=== PATIENT | male | born 1990 | race Caucasian/White ===

== ENCOUNTER 2017-10-04 23:50 | Emergency (ER) | payer OTHER ==
[2017-10-04 23:55] VITALS: BMI 30.5
[2017-10-05] MEDS ORDERED: Metoprolol 1 mg/ml Inj IVP ONE (00:01)
--- NOTE | 2017-10-05 00:01 | ED PDOC ---
Arrival/HPI - General Chief Complaint: Medical Clearance Time Seen by Provider: 10/04/17 23:54 - History of Present Illness Narrative History of Present Illness (Text): 10/05/17 00:01 Past Medical History - Psychiatric Hx Substance Use: No Family/Social History Smoking Status: Light Smoker < 10 Cigarettes Daily Hx Alcohol Use: No Hx Substance Use: No Allergies/Home Meds Allergies/Adverse Reactions: Allergies No Known Allergies Allergy (Verified 10/04/17 23:55) Medical Decision Making ED Course and Treatment: 10/05/17 00:01 Disposition/Present on Arrival - Present on Arrival History of DVT/PE: No History of Uncontrolled Diabetes: No Urinary Catheter: No History of Decub. Ulcer: No History Surgical Site Infection Following: None - Disposition
[2017-10-05] MEDS ORDERED: Metoprolol 1 mg/ml Inj IVP STA ×2 (00:06→01:14)
[2017-10-05 00:07] VITALS: TEMP 97.7
--- NOTE | 2017-10-05 00:12 | ED PDOC ---
Arrival/HPI <Nicola Engel - Last Filed: 10/05/17 01:54> - General Historian: Patient <Philippe Alvarez - Last Filed: 10/05/17 14:42> - General Chief Complaint: Medical Clearance Time Seen by Provider: 10/04/17 23:54 - History of Present Illness Narrative History of Present Illness (Text): 10/05/17 00:07 26 y/o male, pmh including VSD/SVT, nkda, c/o palpitation and chest pain x 1 hour. Pt. stated that he had history of svt?, relief with a IV medication, seen here in 2013 which the echocardiogram show ventral septal defect with left to right shunt and no pulmonary htn with EF 55-60%, never had a follow up since. Pt. was drinking beer and smoking marijuanna tonight about 1 hour ago with 1 drink, started to have palpitation and chest pain, came to the ER with the HR 140s, tremor on hand and stated that he doesn't feel well. (Philippe Alvarez) Past Medical History - Provider Review Nursing Documentation Reviewed: Yes - Psychiatric Hx Substance Use: No <Philippe Alvarez - Last Filed: 10/05/17 14:42> Family/Social History - Physician Review Nursing Documentation Reviewed: Yes Family/Social History: Unknown Family HX Smoking Status: Light Smoker < 10 Cigarettes Daily Hx Alcohol Use: No Hx Substance Use: No <Philippe Alvarez - Last Filed: 10/05/17 14:42> Allergies/Home Meds <Nicola Engel - Last Filed: 10/05/17 01:54> <Philippe Alvarez - Last Filed: 10/05/17 14:42> Allergies/Adverse Reactions: Allergies No Known Allergies Allergy (Verified 10/04/17 23:55) Home Medications: Home Meds Medication Instructions Recorded Confirmed Multivitamin [Multiple Vitamins] 1 tab PO DAILY 10/05/17 10/05/17 Review of Systems - Review of Systems Constitutional: absent: Fatigue, Fevers Eyes: absent: Vision Changes ENT: absent: Hearing Changes, Rhinorrhea Respiratory: absent: SOB, Cough Cardiovascular: Chest Pain, Palpitations. absent: Edema, Calf Pain Gastrointestinal: absent: Abdominal Pain, Nausea, Vomiting Musculoskeletal: absent: Arthralgias, Back Pain Skin: absent: Rash, Pruritis, Skin Lesions Neurological: absent: Headache, Dizziness <Philippe Alvarez - Last Filed: 10/05/17 14:42> Physical Exam Vital Signs Reviewed: Yes Temperature: Afebrile Blood Pressure: Hypertensive Pulse: Tachycardic Respiratory Rate: Normal Appearance: Positive for: Uncomfortable Pain Distress: Moderate Mental Status: Positive for: Alert and Oriented X 3 - Systems Exam Head: Present: Atraumatic, Normocephalic Pupils: Present: PERRL Extroacular Muscles: Present: EOMI Conjunctiva: Present: Normal Mouth: Present: Moist Mucous Membranes Neck: Present: Normal Range of Motion Respiratory/Chest: Present: Clear to Auscultation, Good Air Exchange. No: Respiratory Distress, Accessory Muscle Use, Wheezes, Retracting, Rhonchi Cardiovascular: Present: Regular Rate and Rhythm, Normal S1, S2, Tachycardic, Other (no pedal edema). No: Murmurs Abdomen: Present: Normal Bowel Sounds. No: Tenderness, Distention, Peritoneal Signs Back: Present: Normal Inspection Upper Extremity: Present: Normal Inspection. No: Cyanosis, Edema Lower Extremity: Present: Normal Inspection. No: Edema Neurological: Present: GCS=15, Speech Normal, Motor Func Grossly Intact, Normal Cerebellar Funct, Gait Normal, Memory Normal Skin: Present: Warm, Dry, Normal Color. No: Rashes Psychiatric: Present: Alert, Oriented x 3, Normal Insight, Normal Concentration <Philippe Alvarez - Last Filed: 10/05/17 14:42> Vital Signs Temp Pulse Resp BP Pulse Ox 10/05/17 08:12 80 18 103/62 98 10/05/17 06:13 83 15 114/70 96 10/05/17 04:58 87 16 118/68 97 10/05/17 03:28 95 H 17 120/84 100 10/05/17 03:02 109 H 138/80 10/05/17 01:17 96 H 17 152/89 H 100 10/05/17 00:56 105 H 17 186/84 H 98 10/05/17 00:35 127 H 145/105 H 10/05/17 00:07 97.7 F 10/05/17 00:01 140 H 18 160/94 H 100 Medical Decision Making <Nicola Engel - Last Filed: 10/05/17 01:54> - Critical Care Critical Care Minutes: 30 minutes Critical Care Time: Unstable - Lab Interpretations I have reviewed the lab results: Yes Interpretation: Abnormal lab values (K+ 2.9, wbc 14.6) - RAD Interpretation Movie Theater Manager: Radiologist - EKG Interpretation Interpreted by ED Physician: Yes Type: 12 lead EKG Comparison: Com.w/previous EKG <Philippe Alvarez - Last Filed: 10/05/17 14:42> ED Course and Treatment: 10/05/17 00:12 -labs/ua/uds/cardiac enzyme/thyroid panel -cxr -ekg -nasal cannula 4L -IVF/lopressor 5mg IV -observe and reassess 10/05/17 01:05 -EKG: Sinus Tachycardia @140 BPM, no ST elevation or depression, no T wave inversion. -IV lopressor 5mg given, repeat ekg show -Repeat EKG: NSR @ 89 BPM, no ST elevation or depression, no T wave inversion. 10/05/17 01:15 -Pt. is still tachy fluctuating from 95 to 115 BPM, symptomatic, another lopressor 5mg IV ordered. -Labs are non-significant except wbc 14.6, K+ 2.9 (potassium chloride po 20meq and 10meq IV ordered, normal magnesium) -Thyroid panel show no thyroid storm but there is subclinical hyperthyroidism. -Pending UA and UDS. -Pt. will need admission due to the cardiac arrythmia and underlying ventricular septal defect. -Case discussed with Dr. Engel and he agreed on the treatment and admission. -Will admit to hospitalist. 10/05/17 01:28 -Case discussed with Dr. Squires, discussed about the case/labs/radiology results , agreed on the observation over night and will need to be observe over night. -Dr. Engel will put in the admission. (Philippe Alvarez) - Critical Care Narrative Critical Care (Text): 10/05/17 01:29 -Tachyarryhthmia @ 140BPM, symptomatic, bedside IV lopressor 5mg IV, hydration and repeat ekg, close cardiac monitoring. (Philippe Alvarez) - Lab Interpretations Lab Results: 10/05/17 00:00 10/05/17 07:10 Lab Results 10/05/17 07:10: Sodium 140, Potassium 4.7, Chloride 107, Carbon Dioxide 24, Anion Gap 12, BUN 12, Creatinine 0.8, Est GFR ( Amer) > 60, Est GFR (Non- Af Amer) > 60, Random Glucose 105, Calcium 9.5, Lactate Dehydrogenase 362, Total Creatine Kinase 56, Troponin I < 0.01 10/05/17 03:15: Urine Opiates Screen Negative, Urine Methadone Screen Negative, Ur Barbiturates Screen Negative, Ur Phencyclidine Scrn Negative, Ur Amphetamines Screen Negative, U Benzodiazepines Scrn Negative, U Oth Cocaine Metabols Negative, U Cannabinoids Screen Negative 10/05/17 03:15: Urine Color Yellow, Urine Appearance Clear, Urine pH 7.0, Ur Specific [place] 1.010, Urine Protein Negative, Urine Glucose (UA) Negative, Urine Ketones Trace H, Urine Blood Negative, Urine Nitrate Negative, Urine Bilirubin Negative, Urine Urobilinogen 0.2, Ur Leukocyte Esterase Negative 10/05/17 00:00: Phosphorus 3.8, Magnesium 1.8 10/05/17 00:00: ESR 15 10/05/17 00:00: C-React Prot High Sens 13.45 H, Free T4 1.37, Thyroxine (T4) 11.5 H 10/05/17 00:00: D-Dimer, Quantitative < 200 10/05/17 00:00: Free T4 1.31, TSH 3rd Generation 0.21 L, Alcohol, Quantitative < 10 10/05/17 00:00: Sodium 140, Potassium 2.9 L*, Chloride 102, Carbon Dioxide 24, Anion Gap 18, BUN 13, Creatinine 1.0, Est GFR ( Amer) > 60, Est GFR (Non- Af Amer) > 60, Random Glucose 140 H, Calcium 9.8, Magnesium 1.8, Total Bilirubin 0.6, AST 29, ALT 31, Alkaline Phosphatase 106, Lactate Dehydrogenase 449, Total Creatine Kinase 75, Troponin I < 0.01, Total Protein 8.8 H, Albumin 4.7, Globulin 4.1, Albumin/Globulin Ratio 1.1 10/05/17 00:00: WBC 14.6 H, RBC 5.39, Hgb 14.9, Hct 45.5, MCV 84.4, MCH 27.6, MCHC 32.7, RDW 13.3, Plt Count 397, MPV 9.9, Gran % 49.4 L, Lymph % (Auto) 41.2 H, [place] % (Auto) 7.9 H, Eos % (Auto) 1.4 L, Baso % (Auto) 0.1, Gran # 7.22 H, Lymph # 6.0 H, [place] # 1.2 H, Eos # 0.2, Baso # 0.01 - RAD Interpretation Radiology Orders: 10/05/17 00:06 CHEST PORTABLE [RAD] Stat no acute cardiopulmonary disease (Philippe Alvarez) - EKG Interpretation EKG Interpretation (Text): 10/05/17 01:07 -EKG: Sinus Tachycardia @140 BPM, no ST elevation or depression, no T wave inversion. -IV lopressor 5mg given, repeat ekg show -Repeat EKG: NSR @ 89 BPM, no ST elevation or depression, no T wave inversion. (Philippe Alvarez) - Medication Orders Current Medication Orders: Acetaminophen (Tylenol 325mg Tab) 650 mg PO Q4 PRN PRN Reason: Fever >100.4 F Sodium Chloride (Sodium Chloride 0.9%) 1,000 mls @ 100 mls/hr IV .Q10H [facility] Last Admin: 10/05/17 10:13 Dose: Not Given Non-Admin Reason: Patient Refused Ibuprofen (Motrin Tab) 400 mg PO Q6H PRN PRN Reason: Pain, Mild (1-3) Metoprolol Tartrate (Lopressor) 25 mg PO Q4 PRN PRN Reason: Heart rate Ondansetron HCl (Zofran Inj) 4 mg IVP Q4H PRN PRN Reason: Nausea/Vomiting Pantoprazole Sodium (Protonix Ec Tab) 40 mg PO 0600 [facility] Last Admin: 10/05/17 06:08 Dose: 40 mg Discontinued Medications Potassium Chloride (Potassium Chloride 10 Meq/100 Ml) 10 meq in 100 mls @ 100 mls/hr IVPB ONCE ONE Stop: 10/05/17 02:16 Last Admin: 10/05/17 03:03 Dose: 100 mls/hr eMAR Start Stop Document 10/05/17 03:03 IT (Rec: 10/05/17 03:03 IT RECOVERED-LAP) Intravenous Solution Start Date 10/05/17 Start Time 03:03 End Date 10/05/17 End time 04:04 Total Infusion Time 61 Metoprolol Tartrate (Lopressor) 5 mg IVP STAT STA Stop: 10/05/17 00:07 Last Admin: 10/05/17 00:35 Dose: 5 mg IVP Administration Document 10/05/17 00:35 IT (Rec: 10/05/17 00:35 IT RECOVERED-LAP) Charges for Administration # of IVP Administrations 1 MAR Pulse and Blood Pressure Document 10/05/17 00:35 IT (Rec: 10/05/17 00:35 IT RECOVERED-LAP) Pulse Pulse Rate (60-90) 127 Blood Pressure Blood Pressure (100/60-150/90) 145/105 Metoprolol Tartrate (Lopressor) 5 mg IVP STAT STA Stop: 10/05/17 01:15 Last Admin: 10/05/17 03:02 Dose: 5 mg IVP Administration Document 10/05/17 03:02 IT (Rec: 10/05/17 03:03 IT RECOVERED-LAP) Charges for Administration # of IVP Administrations 1 MAR Pulse and Blood Pressure Document 10/05/17 03:02 IT (Rec: 10/05/17 03:03 IT RECOVERED-LAP) Pulse Pulse Rate (60-90) 109 Blood Pressure Blood Pressure (100/60-150/90) 138/80 Potassium Chloride (K-Dur 20 Meq Er Tab) 20 meq PO STAT STA Stop: 10/05/17 01:18 Last Admin: 10/05/17 03:02 Dose: 20 meq Potassium Chloride (K-Dur 20 Meq Er Tab) 40 meq PO STAT STA Stop: 10/05/17 02:34 Last Admin: 10/05/17 03:25 Dose: 40 meq - PA / RENTAL CAR PORTER / Resident Statement SARI has reviewed & agrees with the documentation as recorded. SARI has examined the patient and agrees with the treatment plan. <Nicola Engel - Last Filed: 10/05/17 01:54> - PA / [employer]ENT[employer] / Resident Statement SARI has reviewed & agrees with the documentation as recorded. <Philippe Alvarez - Last Filed: 10/05/17 14:42> Disposition/Present on Arrival <Nicola Engel - Last Filed: 10/05/17 01:54> - Present on Arrival Any Indicators Present on Arrival: No History of DVT/PE: No History of Uncontrolled Diabetes: No Urinary Catheter: No History of Decub. Ulcer: No History Surgical Site Infection Following: None - Disposition Have Diagnosis and Disposition been Completed?: Yes Disposition Time: 01:20 Patient Plan: Admission, Telemetry <Philippe Alvarez Q - Last Filed: 10/05/17 14:42> - Disposition Diagnosis: Tachyarrhythmia, Palpitation, VSD (ventricular septal defect), Chest pain, Hypokalemia, Subclinical hyperthyroidism Disposition: AGAINST MEDICAL ADVICE Patient Problems: Current Active Problems Problem Status Onset Tachyarrhythmia Acute Palpitation Acute VSD (ventricular septal defect) Acute Chest pain Acute Hypokalemia Acute Subclinical hyperthyroidism Acute Condition: GUARDED Referrals: Irena Jackson MD [Primary Care Provider] -
[2017-10-05] MEDS: Sodium Chloride 0.9% 1,000 ML IV SCH ×2 (00:37→10:13)
[2017-10-05 00:47] LABS: ALCOHOL SERUM < 10 mg/dL (0-10)
[2017-10-05 00:50] LABS: BASO # 0.01 K/mm3 (0.0-2.0); BASO % 0.1 % (0.0-3.0); EOS # 0.2 (0.0-0.7); EOS % 1.4 % (1.5-5.0); GRAN # 7.22 (1.4-6.5); GRAN % 49.4 % (50.0-68.0); HEMATOCRIT 45.5 % (42.0-52.0); LYMPH % 41.2 % (22.0-35.0); MEAN CELL VOLUME 84.4 fl (80.0-105.0); MEAN CORPUSCULAR HEMOGLOBIN 27.6 pg (25.0-35.0); MEAN CORPUSCULAR HGB CONC 32.7 g/dl (31.0-37.0); MEAN PLATELET VOLUME 9.9 fl (7.0-11.0); MONO # 1.2 (0.1-0.6); MONO % 7.9 % (1.0-6.0); RED CELL DISTRIBUTION WIDTH 13.3 % (11.5-14.5); WHITE BLOOD COUNT 14.6 10^3/ul (4.5-11.0)
[2017-10-05 00:57] LABS: TROPONIN I < 0.01 ng/mL
[2017-10-05 01:03] LABS: FREE T4 1.31 ng/dL (0.78-2.19)
[2017-10-05 01:09] LABS: CHLORIDE 102 mmol/L (98-107)
[2017-10-05 01:12] LABS: ALB/GLOB RATIO 1.1 (1.1-1.8); ALKALINE PHOSPHATASE 106 U/L (38-126); ALT/SGPT 31 U/L (7-56); AST/SGOT 29 U/L (17-59); BILIRUBIN,TOTAL 0.6 mg/dL (0.2-1.3); BLOOD UREA NITROGEN 13 mg/dL (7-21); CALCIUM 9.8 mg/dL (8.4-10.5); CARBON DIOXIDE 24 mmol/L (21-33); GFR AFRICAN-AMERICAN > 60; GLUCOSE,RANDOM 140 mg/dL (70-110); MAGNESIUM 1.8 mg/dL (1.7-2.2); POTASSIUM 2.9 mmol/L (3.6-5.0); SODIUM 140 mmol/L (132-148); TOTAL PROTEIN 8.8 g/dL (5.8-8.3)
[2017-10-05 01:17] LABS: THYROID STIMULATING HORMONE 0.21 mIU/mL (0.46-4.68)
[2017-10-05] MEDS ORDERED: Potassium Chloride 20 mEq ER Tab PO STA ×2 (01:17→02:33)
[2017-10-05 03:50] LABS: MAGNESIUM 1.8 mg/dL (1.7-2.2); PHOSPHOROUS 3.8 mg/dL (2.5-4.5)
[2017-10-05 03:57] LABS: URINE BILIRUBIN NEGATIVE (NEGATIVE); URINE BLOOD NEGATIVE (NEGATIVE); URINE GLUCOSE (UA) NEGATIVE (NEGATIVE); URINE KETONE TRACE mg/dL (NEGATIVE); URINE LEUKOCYTE ESTERASE NEGATIVE Leu/uL (NEGATIVE); URINE PROTEIN NEGATIVE mg/dL (<30 mg/dL); URINE UROBILINOGEN 0.2 E.U./dL (<1 E.U./dL)
[2017-10-05 04:00] LABS: URINE APPEARANCE CLEAR (CLEAR); URINE COLOR YELLOW (YELLOW)
[2017-10-05 04:07] LABS: FREE T4 1.37 ng/dL (0.78-2.19); T4 11.5 ug/dL (5.5-11.0)
--- NOTE | 2017-10-05 04:36 | CP.PCM.HP ---
<Alon Mahoney - Last Filed: 10/05/17 04:52> History of Present Illness - History of Present Illness History of Present Illness: Mr. Gleason is a 26 y/o male w/ PMHx of hyperthyroidism, congenital VSD (that closed) and prior similar episode who presents to ED with complaints of palpitations and associated CP which began 2 hours prior to ED. Pt stated that he was standing next to his friends who were smoking marijuana and inhaled the smoke second hand when the pain began. Pt denied any marijuana use himself. Pt also stated that one other incident occurred last year with similar triggers in [place] and pt was taken to the hospital, given a medicine and the palpitations resolved, but he cannot recall the medication. Pt describes the CP as a mid- sternal, sharp non-radiating, intermittent pain which gets worse w/ breathing, but gets better with rest. Pt rated the pain 10/10 when it first began and is currently a 4/10 in the ED. he also complains of LUE and b/l LE coldness but denies numbness/tingling. Pt states that he eats fast food 2x a week and smokes 4 cigarettes per day for the past year. Pt also complains of SOB, AGRAWAL and dizziness. Pt denies any fever, chills, abd pain, N/V/C/D, LOC, dizziness, falls , blurry vision or diplopia. 12-pt ROS was reviewed and is otherwise unremarkable. In ED, pt's potassium was 2.9, Leukocytosis is present and pulse was 101. Pt was given Lopressor 5mgx2 and K was repleted PMHx: Hyperthyroidism, VSD PSHx: lasik surgery Allergies: NKDA Meds: Vitamin pills SHx: currently not employed, used to work with [employer]; tobacco user (4 cigs/day), denies ETOH and substance/marijuana use Present on Admission - Present on Admission Any Indicators Present on Admission: No History of DVT/PE: No History of Uncontrolled Diabetes: No Urinary Catheter: No Decubitus Ulcer Present: No Review of Systems - Review of Systems All systems: reviewed and no additional remarkable complaints except (as per HPI ) Past Patient History - Past Medical History & Family History Past Medical History?: Yes Past Family History: Reviewed and not pertinent - Past Social History Smoking Status: Light Smoker < 10 Cigarettes Daily Alcohol: None Drugs: Denies - CARDIAC Other/Comment: congenital VSD (resolved) - PULMONARY Hx Respiratory Disorders: No - NEUROLOGICAL Hx Neurological Disorder: No - HEENT Hx HEENT Problems: No - RENAL Hx Chronic Kidney Disease: No - ENDOCRINE/METABOLIC Hx Hyperthyroidism: Yes - HEMATOLOGICAL/ONCOLOGICAL Hx Blood Disorders: No - INTEGUMENTARY Hx Dermatological Problems: No - MUSCULOSKELETAL/RHEUMATOLOGICAL Hx Musculoskeletal Disorders: No - GASTROINTESTINAL Hx Gastrointestinal Disorders: No - GENITOURINARY/GYNECOLOGICAL Hx Genitourinary Disorders: No - PSYCHIATRIC Hx Psychophysiologic Disorder: No Hx Substance Use: No - SURGICAL HISTORY Hx Surgeries: No - ANESTHESIA Hx Anesthesia: No Meds Allergies/Adverse Reactions: Allergies Allergy/AdvReac Type Severity Reaction Status Date / Time No Known Allergies Allergy Verified 10/04/17 23:55 Physical Exam - Constitutional Appears: Well, Non-toxic, No Acute Distress - Head Exam Head Exam: ATRAUMATIC, NORMAL INSPECTION, NORMOCEPHALIC - Eye Exam Eye Exam: EOMI, Normal appearance, PERRL Pupil Exam: NORMAL ACCOMODATION - ENT Exam ENT Exam: Mucous Membranes Moist, Normal Exam - Neck Exam Neck exam: Positive for: Full Rom, Normal Inspection - Respiratory Exam Respiratory Exam: Clear to Auscultation Bilateral, NORMAL BREATHING PATTERN. absent: Rales, Rhonchi, Wheezes - Cardiovascular Exam Cardiovascular Exam: Tachycardia, REGULAR RHYTHM, +S1, +S2. absent: Clicks, Diastolic murmur, Gallop, Irregular Rhythm, JVD, Rubs, +S4, Systolic Murmur - GI/Abdominal Exam GI & Abdominal Exam: Normal Bowel Sounds, Soft. absent: Distended, Firm, Organomegaly, Tenderness - Extremities Exam Extremities exam: Positive for: full ROM, normal inspection. Negative for: pedal edema Additional comments: cold extremities (hands and feet) - Back Exam Back exam: NORMAL INSPECTION - Neurological Exam Neurological exam: Alert, Oriented x3 - Psychiatric Exam Psychiatric exam: Normal Affect, Normal Mood - Skin Skin Exam: Normal Color, Warm Results - Vital Signs Recent Vital Signs: Last Vital Signs Temp 97.7 F 10/05/17 00:07 Pulse 95 H 10/05/17 03:28 Resp 17 10/05/17 03:28 BP 120/84 10/05/17 03:28 Pulse Ox 100 10/05/17 03:28 - Labs Result Diagrams: 10/05/17 00:00 10/05/17 00:00 Labs: Laboratory Results - last 24 hr 10/05/17 10/05/17 03:15 03:15 Urine Color Yellow Urine Appearance Clear Urine pH 7.0 Ur Specific [place] 1.010 Urine Protein Negative Urine Glucose (UA) Negative Urine Ketones Trace H Urine Blood Negative Urine Nitrate Negative Urine Bilirubin Negative Urine Urobilinogen 0.2 Ur Leukocyte Esterase Negative U Cannabinoids Screen 40.35 Assessment & Plan - Assessment and Plan (Free Text) Assessment: 26yo M PMH hyperthyroid and congenital VSD who presents with episode of palpitations and chest pain after second hand exposure to marijuana. Plan: 1. palpitations and cp r/o acs vs substance-induced arrhythmia vs pericarditis - EKG showed Sinus Tachycardia @140 BPM, no ST elevation or depression, no T wave inversion - IV lopressor 5mg was given, repeat ekg showed NSR @ 89 BPM, no ST elevation or depression, no T wave inversion - Lopressor PO PRN HR - Initial troponin negative - cont to trend troponin and EKG - Cardiology consulted, recs appreciated - motrin prn - zofran prn - NS @100 2. Hypokalemia - replete - f/u BMP - no EKG changes noted 3. Leukocytosis - tylenol prn - CXR negative - UA is clean - likely reactive as pt remains afebrile and with no signs of infection 4. Hx VSD - last Echo was 2012 showed EF 55%, and a small sized membranous VSD w/ L to R shunt flow but no pulmonary hypertension - Echo w/ bubble study ordered - Cardiology consulted, recs appreciated 5. Hx Hyperthyroid - TSH low however, free T4 is normal, however total T4 is elevated - no medical intervention needed at this time PTX/SCDs NPO Patient was seen, examined and discussed with attending, Dr. Shaw Mahoney PGY1 - Date & Time Date: 10/05/17 Time: 04:12 <Amanda Squires - Last Filed: 10/05/17 06:56> Results - Vital Signs Recent Vital Signs: Last Vital Signs Temp 97.7 F 10/05/17 00:07 Pulse 83 10/05/17 06:13 Resp 15 10/05/17 06:13 BP 114/70 10/05/17 06:13 Pulse Ox 96 10/05/17 06:13 - Labs Result Diagrams: 10/05/17 00:00 10/05/17 00:00 Labs: Laboratory Results - last 24 hr 10/05/17 10/05/17 03:15 03:15 Urine Color Yellow Urine Appearance Clear Urine pH 7.0 Ur Specific [place] 1.010 Urine Protein Negative Urine Glucose (UA) Negative Urine Ketones Trace H Urine Blood Negative Urine Nitrate Negative Urine Bilirubin Negative Urine Urobilinogen 0.2 Ur Leukocyte Esterase Negative Urine Opiates Screen Negative Urine Methadone Screen Negative Ur Barbiturates Screen Negative Ur Phencyclidine Scrn Negative Ur Amphetamines Screen Negative U Benzodiazepines Scrn Negative U Oth Cocaine Metabols Negative U Cannabinoids Screen Negative Attending/Attestation - Attestation I have personally seen and examined this patient.: Yes I have fully participated in the care of the patient.: Yes I have reviewed all pertinent clinical information: Yes Notes (Text): 10/05/17 06:55 Patient was seen when he was in bed # 4 in the ER. Agree with history, physical examination, assessment and plan.
[2017-10-05] MEDS ORDERED: Pantoprazole 40 mg EC Tab PO SCH (06:00)
[2017-10-05 07:57] LABS: TROPONIN I < 0.01 ng/mL
[2017-10-05 08:09] LABS: BLOOD UREA NITROGEN 12 mg/dL (7-21); CALCIUM 9.5 mg/dL (8.4-10.5); CARBON DIOXIDE 24 mmol/L (21-33); CHLORIDE 107 mmol/L (98-107); GFR AFRICAN-AMERICAN > 60; GLUCOSE,RANDOM 105 mg/dL (70-110); POTASSIUM 4.7 mmol/L (3.6-5.0); SODIUM 140 mmol/L (132-148)
[2017-10-05 08:12] VITALS: BP 103/62; PULSE 80; RESP 18; O2SAT 98
--- NOTE | 2017-10-05 08:30 | RAD ---
HISTORY: chest pain COMPARISON: No prior. FINDINGS: LUNGS: No active pulmonary disease. PLEURA: No significant pleural effusion identified, no pneumothorax apparent. CARDIOVASCULAR: Normal. OSSEOUS STRUCTURES: No significant abnormalities. VISUALIZED UPPER ABDOMEN: Normal. OTHER FINDINGS: None. IMPRESSION: No acute cardiopulmonary disease appreciated.
--- NOTE | 2017-10-05 12:30 | CP.PCM.DIS ---
<Chay Joineril - Last Filed: 10/05/17 12:24> Provider - Provider Date of Admission: 10/05/17 01:54 Attending physician: Marlon Hollingsworth MD Primary care physician: Irena Jackson MD Time Spent in preparation of Discharge (in minutes): 45 Hospital Course - Lab Results Lab Results: Most Recent Lab Values WBC 14.6 10^3/ul (4.5-11.0) H 10/05/17 00:00 RBC 5.39 10^6/uL (3.5-6.1) 10/05/17 00:00 Hgb 14.9 g/dL (14.0-18.0) 10/05/17 00:00 Hct 45.5 % (42.0-52.0) 10/05/17 00:00 MCV 84.4 fl (80.0-105.0) 10/05/17 00:00 MCH 27.6 pg (25.0-35.0) 10/05/17 00:00 MCHC 32.7 g/dl (31.0-37.0) 10/05/17 00:00 RDW 13.3 % (11.5-14.5) 10/05/17 00:00 Plt Count 397 10^3/uL (120.0-450.0) 10/05/17 00:00 MPV 9.9 fl (7.0-11.0) 10/05/17 00:00 Gran % 49.4 % (50.0-68.0) L 10/05/17 00:00 Lymph % (Auto) 41.2 % (22.0-35.0) H 10/05/17 00:00 [place] % (Auto) 7.9 % (1.0-6.0) H 10/05/17 00:00 Eos % (Auto) 1.4 % (1.5-5.0) L 10/05/17 00:00 Baso % (Auto) 0.1 % (0.0-3.0) 10/05/17 00:00 Gran # 7.22 (1.4-6.5) H 10/05/17 00:00 Lymph # 6.0 (1.2-3.4) H 10/05/17 00:00 [place] # 1.2 (0.1-0.6) H 10/05/17 00:00 Eos # 0.2 (0.0-0.7) 10/05/17 00:00 Baso # 0.01 K/mm3 (0.0-2.0) 10/05/17 00:00 ESR 15 mm/hr (0.0-15.0) 10/05/17 00:00 D-Dimer, Quantitative < 200 ng/mL (0-243) 10/05/17 00:00 Sodium 140 mmol/L (132-148) 10/05/17 07:10 Potassium 4.7 mmol/L (3.6-5.0) 10/05/17 07:10 Chloride 107 mmol/L (98-107) 10/05/17 07:10 Carbon Dioxide 24 mmol/L (21-33) 10/05/17 07:10 Anion Gap 12 (10-20) 10/05/17 07:10 BUN 12 mg/dL (7-21) 10/05/17 07:10 Creatinine 0.8 mg/dl (0.8-1.5) 10/05/17 07:10 Est GFR ( Amer) > 60 10/05/17 07:10 Est GFR (Non-Af Amer) > 60 10/05/17 07:10 Random Glucose 105 mg/dL (70-110) 10/05/17 07:10 Calcium 9.5 mg/dL (8.4-10.5) 10/05/17 07:10 Phosphorus 3.8 mg/dL (2.5-4.5) 10/05/17 00:00 Magnesium 1.8 mg/dL (1.7-2.2) 10/05/17 00:00 Total Bilirubin 0.6 mg/dL (0.2-1.3) 10/05/17 00:00 AST 29 U/L (17-59) 10/05/17 00:00 ALT 31 U/L (7-56) 10/05/17 00:00 Alkaline Phosphatase 106 U/L (38-126) 10/05/17 00:00 Lactate Dehydrogenase 362 U/L (333-699) 10/05/17 07:10 Total Creatine Kinase 56 U/L (35-230) 10/05/17 07:10 Troponin I < 0.01 ng/mL 10/05/17 07:10 Total Protein 8.8 g/dL (5.8-8.3) H 10/05/17 00:00 Albumin 4.7 g/dL (3.0-4.8) 10/05/17 00:00 Globulin 4.1 gm/dL 10/05/17 00:00 Albumin/Globulin Ratio 1.1 (1.1-1.8) 10/05/17 00:00 Free T4 1.37 ng/dL (0.78-2.19) 10/05/17 00:00 Thyroxine (T4) 11.5 ug/dL (5.5-11.0) H 10/05/17 00:00 TSH 3rd Generation 0.21 mIU/mL (0.46-4.68) L 10/05/17 00:00 Urine Color Yellow (YELLOW) 10/05/17 03:15 Urine Appearance Clear (CLEAR) 10/05/17 03:15 Urine pH 7.0 (4.7-8.0) 10/05/17 03:15 Ur Specific [place] 1.010 (1.005-1.035) 10/05/17 03:15 Urine Protein Negative mg/dL (<30 mg/dL) 10/05/17 03:15 Urine Glucose (UA) Negative mg/dL (NEGATIVE) 10/05/17 03:15 Urine Ketones Trace mg/dL (NEGATIVE) H 10/05/17 03:15 Urine Blood Negative (NEGATIVE) 10/05/17 03:15 Urine Nitrate Negative (NEGATIVE) 10/05/17 03:15 Urine Bilirubin Negative (NEGATIVE) 10/05/17 03:15 Urine Urobilinogen 0.2 E.U./dL (<1 E.U./dL) 10/05/17 03:15 Ur Leukocyte Esterase Negative Calixto/uL (NEGATIVE) 10/05/17 03:15 Urine Opiates Screen Negative (NEGATIVE) 10/05/17 03:15 Urine Methadone Screen Negative (NEGATIVE) 10/05/17 03:15 Ur Barbiturates Screen Negative (NEGATIVE) 10/05/17 03:15 Ur Phencyclidine Scrn Negative (NEGATIVE) 10/05/17 03:15 Ur Amphetamines Screen Negative (NEGATIVE) 10/05/17 03:15 U Benzodiazepines Scrn Negative (NEGATIVE) 10/05/17 03:15 U Oth Cocaine Metabols Negative (NEGATIVE) 10/05/17 03:15 U Cannabinoids Screen Negative (NEGATIVE) 10/05/17 03:15 Alcohol, Quantitative < 10 mg/dL (0-10) 10/05/17 00:00 - Hospital Course Hospital Course: Patient is a 26 y/o male w/ PMHx of hyperthyroidism, 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 Patient was seen in the ED. Patient desired to leave against medical advice due to social issues. Patient was educated on the risks and benefits of leaving at this time without being medically cleared. Patient both understands and appreciates that leaving against medical advice can increase his risk of both morbidity and mortality. Furthermore, the patient is instructed to return to the emergency room for evaluation of intractable headache, fever, chills, dizziness, chest pain, shortness of breath, abdominal pain, nausea, vomiting, diarrhea, constipation, and urinary symptoms. This is a brief summary of the patients hospital course. Please see patient chart for full details. Discharge Exam - Head Exam Head Exam: ATRAUMATIC, NORMAL INSPECTION, NORMOCEPHALIC - Additional Findings Additional findings: - Constitutional Appears: Well, Non-toxic, No Acute Distress - Head Exam Head Exam: ATRAUMATIC, NORMAL INSPECTION, NORMOCEPHALIC - Eye Exam Eye Exam: EOMI, Normal appearance, PERRL Pupil Exam: NORMAL ACCOMODATION - ENT Exam ENT Exam: Mucous Membranes Moist, Normal Exam - Neck Exam Neck exam: Positive for: Full Rom, Normal Inspection - Respiratory Exam Respiratory Exam: Clear to Auscultation Bilateral, NORMAL BREATHING PATTERN. absent: Rales, Rhonchi, Wheezes - Cardiovascular Exam Cardiovascular Exam: REGULAR RHYTHM, +S1, +S2. absent: Clicks, Diastolic murmur, Gallop, Irregular Rhythm, JVD, Rubs, +S4, Systolic Murmur - GI/Abdominal Exam GI & Abdominal Exam: Normal Bowel Sounds, Soft. absent: Distended, Firm, Organomegaly, Tenderness - Extremities Exam Extremities exam: Positive for: full ROM, normal inspection. Negative for: pedal edema Additional comments: cold extremities (hands and feet) - Back Exam Back exam: NORMAL INSPECTION - Neurological Exam Neurological exam: Alert, Oriented x3 - Psychiatric Exam Psychiatric exam: Normal Affect, Normal Mood - Skin Skin Exam: Normal Color, Warm Discharge Plan - Follow Up Plan Condition: GUARDED Disposition: AGAINST MEDICAL ADVICE Referrals: Irena Jackson MD [Primary Care Provider] - <Marlon Hollingsworth - Last Filed: 10/05/17 13:10> Provider - Provider Primary care physician: Irena Jackson MD Hospital Course - Lab Results Lab Results: Most Recent Lab Values WBC 14.6 10^3/ul (4.5-11.0) H 10/05/17 00:00 RBC 5.39 10^6/uL (3.5-6.1) 10/05/17 00:00 Hgb 14.9 g/dL (14.0-18.0) 10/05/17 00:00 Hct 45.5 % (42.0-52.0) 10/05/17 00:00 MCV 84.4 fl (80.0-105.0) 10/05/17 00:00 MCH 27.6 pg (25.0-35.0) 10/05/17 00:00 MCHC 32.7 g/dl (31.0-37.0) 10/05/17 00:00 RDW 13.3 % (11.5-14.5) 10/05/17 00:00 Plt Count 397 10^3/uL (120.0-450.0) 10/05/17 00:00 MPV 9.9 fl (7.0-11.0) 10/05/17 00:00 Gran % 49.4 % (50.0-68.0) L 10/05/17 00:00 Lymph % (Auto) 41.2 % (22.0-35.0) H 10/05/17 00:00 [place] % (Auto) 7.9 % (1.0-6.0) H 10/05/17 00:00 Eos % (Auto) 1.4 % (1.5-5.0) L 10/05/17 00:00 Baso % (Auto) 0.1 % (0.0-3.0) 10/05/17 00:00 Gran # 7.22 (1.4-6.5) H 10/05/17 00:00 Lymph # 6.0 (1.2-3.4) H 10/05/17 00:00 [place] # 1.2 (0.1-0.6) H 10/05/17 00:00 Eos # 0.2 (0.0-0.7) 10/05/17 00:00 Baso # 0.01 K/mm3 (0.0-2.0) 10/05/17 00:00 ESR 15 mm/hr (0.0-15.0) 10/05/17 00:00 D-Dimer, Quantitative < 200 ng/mL (0-243) 10/05/17 00:00 Sodium 140 mmol/L (132-148) 10/05/17 07:10 Potassium 4.7 mmol/L (3.6-5.0) 10/05/17 07:10 Chloride 107 mmol/L (98-107) 10/05/17 07:10 Carbon Dioxide 24 mmol/L (21-33) 10/05/17 07:10 Anion Gap 12 (10-20) 10/05/17 07:10 BUN 12 mg/dL (7-21) 10/05/17 07:10 Creatinine 0.8 mg/dl (0.8-1.5) 10/05/17 07:10 Est GFR ( Amer) > 60 10/05/17 07:10 Est GFR (Non-Af Amer) > 60 10/05/17 07:10 Random Glucose 105 mg/dL (70-110) 10/05/17 07:10 Calcium 9.5 mg/dL (8.4-10.5) 10/05/17 07:10 Phosphorus 3.8 mg/dL (2.5-4.5) 10/05/17 00:00 Magnesium 1.8 mg/dL (1.7-2.2) 10/05/17 00:00 Total Bilirubin 0.6 mg/dL (0.2-1.3) 10/05/17 00:00 AST 29 U/L (17-59) 10/05/17 00:00 ALT 31 U/L (7-56) 10/05/17 00:00 Alkaline Phosphatase 106 U/L (38-126) 10/05/17 00:00 Lactate Dehydrogenase 362 U/L (333-699) 10/05/17 07:10 Total Creatine Kinase 56 U/L (35-230) 10/05/17 07:10 Troponin I < 0.01 ng/mL 10/05/17 07:10 C-React Prot High Sens 13.45 mg/L (1.00-3.00) H 10/05/17 00:00 Total Protein 8.8 g/dL (5.8-8.3) H 10/05/17 00:00 Albumin 4.7 g/dL (3.0-4.8) 10/05/17 00:00 Globulin 4.1 gm/dL 10/05/17 00:00 Albumin/Globulin Ratio 1.1 (1.1-1.8) 10/05/17 00:00 Free T4 1.37 ng/dL (0.78-2.19) 10/05/17 00:00 Thyroxine (T4) 11.5 ug/dL (5.5-11.0) H 10/05/17 00:00 TSH 3rd Generation 0.21 mIU/mL (0.46-4.68) L 10/05/17 00:00 Urine Color Yellow (YELLOW) 10/05/17 03:15 Urine Appearance Clear (CLEAR) 10/05/17 03:15 Urine pH 7.0 (4.7-8.0) 10/05/17 03:15 Ur Specific [place] 1.010 (1.005-1.035) 10/05/17 03:15 Urine Protein Negative mg/dL (<30 mg/dL) 10/05/17 03:15 Urine Glucose (UA) Negative mg/dL (NEGATIVE) 10/05/17 03:15 Urine Ketones Trace mg/dL (NEGATIVE) H 10/05/17 03:15 Urine Blood Negative (NEGATIVE) 10/05/17 03:15 Urine Nitrate Negative (NEGATIVE) 10/05/17 03:15 Urine Bilirubin Negative (NEGATIVE) 10/05/17 03:15 Urine Urobilinogen 0.2 E.U./dL (<1 E.U./dL) 10/05/17 03:15 Ur Leukocyte Esterase Negative Calixto/uL (NEGATIVE) 10/05/17 03:15 Urine Opiates Screen Negative (NEGATIVE) 10/05/17 03:15 Urine Methadone Screen Negative (NEGATIVE) 10/05/17 03:15 Ur Barbiturates Screen Negative (NEGATIVE) 10/05/17 03:15 Ur Phencyclidine Scrn Negative (NEGATIVE) 10/05/17 03:15 Ur Amphetamines Screen Negative (NEGATIVE) 10/05/17 03:15 U Benzodiazepines Scrn Negative (NEGATIVE) 10/05/17 03:15 U Oth Cocaine Metabols Negative (NEGATIVE) 10/05/17 03:15 U Cannabinoids Screen Negative (NEGATIVE) 10/05/17 03:15 Alcohol, Quantitative < 10 mg/dL (0-10) 10/05/17 00:00 Attending/Attestation - Attestation I have reviewed all pertinent clinical information, including history, physical exam and plan: Yes Notes (Text): 10/05/17 13:10 Patient left against medical advice before morning rounds.
--- NOTE | 2017-10-05 23:31 | CARD ---
APPROVED REPORT EKG Measurement Heart [id number] [place] 128P24 [id number] <Conclusion> Sinus tachycardia Cannot rule out Inferior infarct, age undetermined Abnormal ECG
--- NOTE | 2017-10-06 11:28 | CARD ---
APPROVED REPORT EKG Measurement Heart [id number] [place] [id number] <Conclusion> Normal sinus rhythm with sinus arrhythmia Q in 3 Prolonged QTC No change except the rate is slower.
== END 2017-10-05 16:00 | disposition left against medical advice (07) ==
LOC: ED 23:50 → UNDOADMOB 10-05 01:54 → ERH 10-05 01:54 → ED 10-05 16:00
DX: Q21.0 Ventricular septal defect (principal); R00.0 Tachycardia, unspecified; R07.9 Chest pain, unspecified; E87.6 Hypokalemia; E05.90 Thyrotoxicosis, unspecified without thyrotoxic crisis or storm
CPT/HCPCS: 71010; 80053; 80320; 80324; 80345; 80346; 80349; 80353; 80358; 80361; 81003; 82550; 83615; 83735; 83992; 84100; 84439; 84443; 84484; 85025; 85378; 85651; 86140; 93005; 96361; 96374; 96376; 99285; J3480; J7040